=== PATIENT | female | born 1950 | race Caucasian/White ===

== ENCOUNTER 2017-08-16 12:03 | Emergency (ER) | payer OTHER ==
[~2017-08-16] VITALS: Ht 165.1 cm; Wt 69.4 kg
[~2017-08-16 12:03] MED LIST: AMLO5 PO; ASPI81CH; ENAHYD PO; ESTR.75 PO; LEVSOD75; LISI5; METO50ER; Nitrostat0.4 MG; OXYB5ER; PRAVASTATIN SOD10 MG; TOLT4 PO
[2017-08-16 12:45] LABS: BASOPHILS ABSOLUTE AUTO 0.04 K/mm3 (0.00-0.23); BASOPHILS PERCENT AUTO 0 % (0-2); EOSINOPHILS PERCENT AUTO 1 % (0-6); Hematocrit 43.5 % (33.0-51.0); Hemoglobin 14.2 g/dL (11.5-16.0); IMMATURE GRAN ABSOLUTE AUTO 0.05 K/mm3 (0.00-0.10); IMMATURE GRAN PERCENT AUTO 0 % (0-1); LYMPHOCYTES ABSOLUTE AUTO 0.53 K/mm3 (0.84-5.20); LYMPHOCYTES PERCENT AUTO 3 % (21-46); MONOCYTES PERCENT AUTO 6 % (4-13); Mean Corpuscular HGB Conc 32.6 g/dL (31.5-36.5); Mean Corpuscular Volume 89 fL (80-100); NEUTROPHILS ABSOLUTE AUTO 13.87 K/mm3 (1.96-9.15); NEUTROPHILS PERCENT AUTO 90 % (41-73); Platelet Count 285 K/mm3 (150-400); RDW Coefficient Variation 12.6 % (11.7-14.2); RDW Standard Deviation 41.5 fL (35.1-46.3); Red Blood Cell Count 4.89 M/mm3 (3.80-5.20); White Blood Cell Count 15.49 K/mm3 (4.00-11.30)
[2017-08-16 13:03] LABS: Alanine Aminotransfer (ALT/SGP 28 U/L (12-78); Albumin, Blood 3.4 g/dL (3.4-5.0); Albumin/Globulin Ratio 0.8 (0.8-1.8); Alk Phos 78 U/L (50-136); Anion Gap 8 mmol/L (6-16); Aspartate Aminotrans (AST/SGOT 25 U/L (12-37); Bilirubin, Total 0.4 mg/dL (0.1-1.0); Blood Urea Nitrogen 17 mg/dL (8-24); Bun/Creatinine Ratio 25.4 (12.0-20.0); CO2, Blood 23 mmol/L (21-32); Calcium, Blood 8.7 mg/dL (8.5-10.1); Chloride, Blood 108 mmol/L (98-108); Creatinine, Blood 0.67 mg/dL (0.40-1.00); Globulin, Blood 4.3 g/dL (2.2-4.0); Glomerular Filtration Rate >60 (60-); Glucose, Blood 106 mg/dL (70-99); Potassium, Blood 4.2 mmol/L (3.5-5.5); Sodium, Blood 139 mmol/L (136-145); Total Protein, Blood 7.7 g/dL (6.4-8.2)
[2017-08-16] MEDS ORDERED: PRAV20 PO (14:45)
[2017-08-16] MEDS ORDERED: ACID REDUCER 1150 MG PO (14:59)
[2017-08-16] MEDS ORDERED: AMLO5 (15:00)
[2017-08-16 15:22] LABS: Source, Urine Clean Catch
[2017-08-16 15:33] LABS: Bilirubin, Urine Neg (Neg); Blood, Urine 1+ (Neg); Glucose Qualitative, Urine Neg (Neg); Ketones, Urine Neg (Neg); Leukocyte Esterase, Urine 1+ (Neg); Nitrite, Urine Neg (Neg); Protein, Urine Neg (Neg); Specific Gravity, Urine 1.015 (1.003-1.022); Urobilinogen, Urine NORM (Normal)
[2017-08-16] MEDS ORDERED: Norco 5-325 Ta1 EACH PO (15:37)
[2017-08-16] MEDS ORDERED: Zofran Odt4 MG PO (15:37)
[2017-08-16 15:44] LABS: Appearance, Urine Clear (Clear); Color, Urine Pale Yellow (P-Yellow)
[2017-08-16 15:50] LABS: Bacteria Few /hpf; Squamous Epithelial Cells Few /hpf (Few)
[2017-08-16 16:23] LABS: Adenovirus F 40/41 Not Detected (NOT DETECT); Astrovirus Not Detected (NOT DETECT); Campylobacter Sp Not Detected (NOT DETECT); Cryptosporidium Not Detected (NOT DETECT); Cyclospora Cayetanensis Not Detected (NOT DETECT); E. Coli O157 Not Detected (NOT DETECT); Entamoeba Histolytica Not Detected (NOT DETECT); Enteroaggregative E. coli-EAEC Not Detected (NOT DETECT); Enteropathogenic E. coli-EPEC Not Detected (NOT DETECT); Enterotoxigenic E. coli-ETEC Not Detected (NOT DETECT); Giardia Lamblia Not Detected (NOT DETECT); Norovirus GI/GII Not Detected (NOT DETECT); Plesiomonas Shigelloides Not Detected (NOT DETECT); Rotavirus A Not Detected (NOT DETECT); Salmonella Sp Not Detected (NOT DETECT); Sapovirus Not Detected (NOT DETECT); Shiga Toxin-prod E. coli-STEC Not Detected (NOT DETECT); Shigella/Enteroin E. coli-EIEC Not Detected (NOT DETECT); Vibrio Cholerae Not Detected (NOT DETECT); Vibrio Sp Not Detected (NOT DETECT); Yersinia Enterocolitica Not Detected (NOT DETECT)
== END 2017-08-16 17:15 | disposition home or self-care (01) ==
LOC: ER 12:03
PROVIDERS: Emergency Medicine; Physician Assistant
DX: K52.9 Noninfective gastroenteritis and colitis, unspecified (principal); Z88.0 Allergy status to penicillin; Z88.8 Allergy status to other drugs, medicaments and biological substances; Z79.899 Other long term (current) drug therapy; Z79.82 Long term (current) use of aspirin; I10 Essential (primary) hypertension; K21.9 Gastro-esophageal reflux disease without esophagitis; E03.9 Hypothyroidism, unspecified; Z87.891 Personal history of nicotine dependence
CPT/HCPCS: 36415; 74177; 80053; 81001; 83690; 85025; 87077; 87086; 87186; 87507; 96361; 96374; 99284; J2405; J7030; Q9967

== ENCOUNTER → 2020-04-17 | Outpatient (CLI) | payer MEDICARE, OTHER ==
[~2020-04-17] MED LIST changes: +ACID REDUCER 1150 MG PO; +AMLO5; +Crestor20 MG PO; +DUTOPROL PO; +FAMO20 PO; +LEVOTHYROXINE PO; +Norco 5-325 Ta1 EACH PO; +PRAV20 PO; +Zofran Odt4 MG PO
== END ==
LOC: PLD 08:10 → LAB SHORT 08:10
DX: D48.5 Neoplasm of uncertain behavior of skin (principal)
CPT/HCPCS: 88305

== ENCOUNTER 2020-09-17 10:51 | Day surgery (SDC) | payer MEDICARE, OTHER ==
[~2020-09-17] VITALS: Ht 165.1 cm; Wt 71.5 kg
== END 2020-09-17 13:15 | disposition home or self-care (01) ==
LOC: ORSCSDS 10:51
PROVIDERS: Internal Medicine Gastroenterology
PROC: 0DB58ZX Excision of Esophagus, Via Natural or Artificial Opening Endoscopic, Diagnostic (ICD-10-PCS; principal; 2020-09-17 13:15)
PROC: 0DB68ZX Excision of Stomach, Via Natural or Artificial Opening Endoscopic, Diagnostic (ICD-10-PCS; principal; 2020-09-17 13:15)
PROC: 0D757ZZ Dilation of Esophagus, Via Natural or Artificial Opening (ICD-10-PCS; principal; 2020-09-17 13:15)
DX: R13.14 Dysphagia, pharyngoesophageal phase (principal); K21.9 Gastro-esophageal reflux disease without esophagitis; K22.2 Esophageal obstruction; K44.9 Diaphragmatic hernia without obstruction or gangrene; K22.8 Other specified diseases of esophagus; Z79.82 Long term (current) use of aspirin; Z87.891 Personal history of nicotine dependence; Z79.899 Other long term (current) drug therapy
CPT/HCPCS: 87081; 88305; 88312; 88342; J2704; J7120

== ENCOUNTER 2020-11-19 15:16 | Observation (INO) | payer MEDICARE, OTHER ==
[~2020-11-19] VITALS: Ht 165.1 cm; Wt 70.6 kg
[~2020-11-19 15:16] MED LIST changes: -AMLO5; -ASPI81CH; -Crestor20 MG PO; -DUTOPROL PO; -FAMO20 PO; -LEVOTHYROXINE PO; -OXYB5ER
[2020-11-19 16:21] LABS: Alanine Aminotransfer (ALT/SGP 45 U/L (12-78); Albumin, Blood 3.8 g/dL (3.4-5.0); Albumin/Globulin Ratio 0.9 (0.8-1.8); Alk Phos 109 U/L (50-136); Anion Gap 6 mmol/L (6-16); Aspartate Aminotrans (AST/SGOT 38 U/L (12-37); Bilirubin, Total 0.4 mg/dL (0.1-1.0); Blood Urea Nitrogen 13 mg/dL (8-24); Bun/Creatinine Ratio 18.3 (12.0-20.0); CO2, Blood 24 mmol/L (21-32); Calcium, Blood 9.4 mg/dL (8.5-10.1); Chloride, Blood 108 mmol/L (98-108); Creatinine, Blood 0.71 mg/dL (0.40-1.00); Globulin, Blood 4.4 g/dL (2.2-4.0); Glomerular Filtration Rate >60 (60-); Glucose, Blood 93 mg/dL (70-99); Potassium, Blood 4.4 mmol/L (3.5-5.5); Sodium, Blood 138 mmol/L (136-145); Total Protein, Blood 8.2 g/dL (6.4-8.2); Troponin I <0.015 ng/mL (0.000-0.040)
[2020-11-19 16:44] LABS: BASOPHILS ABSOLUTE AUTO 0.07 K/mm3 (0.00-0.23); BASOPHILS PERCENT AUTO 1 % (0-2); EOSINOPHILS ABSOLUTE AUTO 0.25 K/mm3 (0.00-0.68); EOSINOPHILS PERCENT AUTO 3 % (0-6); Hematocrit 41.7 % (33.0-51.0); Hemoglobin 14.1 g/dL (11.5-16.0); IMMATURE GRAN ABSOLUTE AUTO 0.04 K/mm3 (0.00-0.10); IMMATURE GRAN PERCENT AUTO 0 % (0-1); LYMPHOCYTES PERCENT AUTO 33 % (21-46); MONOCYTES ABSOLUTE AUTO 0.63 K/mm3 (0.16-1.47); MONOCYTES PERCENT AUTO 7 % (4-13); Mean Corpuscular HGB 29.4 pg (26.0-34.0); Mean Corpuscular HGB Conc 33.8 g/dL (31.5-36.5); Mean Corpuscular Volume 87 fL (80-100); NEUTROPHILS ABSOLUTE AUTO 5.33 K/mm3 (1.96-9.15); NEUTROPHILS PERCENT AUTO 57 % (41-73); RDW Coefficient Variation 12.9 % (11.7-14.2); RDW Standard Deviation 40.5 fL (35.1-46.3); White Blood Cell Count 9.42 K/mm3 (4.00-11.30)
[2020-11-19 18:29] LABS: Mean Platelet Volume 11.6 fL (9.1-12.4); Platelet Count 262 K/mm3 (150-400)
[2020-11-19] MEDS ORDERED: Crestor20 MG PO (20:16)
[2020-11-19] MEDS ORDERED: FAMO40 PO (20:16)
[2020-11-19] MEDS ORDERED: LISI5 PO (20:17)
[2020-11-19] MEDS ORDERED: METO50ER PO (20:17)
[2020-11-19] MEDS ORDERED: Amlodipine Bes2.5 MG PO (20:18)
[2020-11-19] MEDS ORDERED: OXYB5ER PO (20:18)
[2020-11-19] MEDS ORDERED: LEVOTHYROXINE PO (20:18)
[2020-11-19] MEDS ORDERED: Aspir 8181 MG PO (21:54)
--- NOTE | 2020-11-20 06:14 | NUR ---
SHIFT SUMMARY PATIENT ALERT AND ORIENTED. HAD NO COMPLAINTS OF PAIN OR SHORTNESS OF BREATH. REPORTED NO CHEST PAIN. NO ACUTE ISSUES NOTED OVERNIGHT. IV PATENT AND FLUSHED. BED IN LOWEST POSITION WITH WHEELS LOCKED. CALL LIGHT WITHIN REACH. REPORT GIVENT REZA GRIFFITHS.
--- NOTE | 2020-11-20 19:26 | NUR ---
DISCHARGE SUMMARY: LATE ENTRY PATIENT REPORTED SOME "IRRITATION" TO THE RIGHT CHEST AREA THIS MORNING. PATIENT REPORTED THAT THIS IS THE SAME PAIN THAT SHE HAS BEEN HAVING. DENIED NEED FOR INTERVENTION. PATIENT DENIED OTHER DISCOMFORT OR PAIN. PATIENT INDEPENDENT IN THE ROOM WITHOUT SHORTNESS OF BREATH, DIZZINESS OR INCREASED CHEST PAIN. PATIENT TOLERATED STRESS TEST WELL. PATIENT DENIED NAUSEA OR INCREASED CHEST PAIN. PATIENT TO DISCHARGE PER MD ORDERS. UNABLE TO MAKE FOLLOW-UP APPOINTMENTS DUE TO EVENING DISCHARGE TIME. PATIENT REPORTED THAT SHE FEELS COMFORTABLE MAKING THEM. PATIENT DISCHARGED IN WHEELCHAIR WITH RN. PATIENT STABLE AT TIME OF DISCHARGE.
== END 2020-11-20 18:26 | disposition home or self-care (01) ==
LOC: ER 15:16 → ERHOLD 15:17 → MEDS 22:14
PROVIDERS: Physician Assistant; ADMIT Internal Medicine
DX: R07.89 Other chest pain (principal); I10 Essential (primary) hypertension; K21.9 Gastro-esophageal reflux disease without esophagitis; E03.9 Hypothyroidism, unspecified; I25.10 Atherosclerotic heart disease of native coronary artery without angina pectoris; E78.5 Hyperlipidemia, unspecified; I45.10 Unspecified right bundle-branch block; Z79.82 Long term (current) use of aspirin; Z88.0 Allergy status to penicillin; Z88.1 Allergy status to other antibiotic agents; Z87.891 Personal history of nicotine dependence; Z87.448 Personal history of other diseases of urinary system
CPT/HCPCS: 36415; 71046; 78452; 80053; 83690; 83880; 84484; 85025; 85379; 93005; 93010; 93017; 96372; 99285-25; A9270; A9500; G0378; J0706; J1650; J2785

== ENCOUNTER 2021-06-19 08:02 | Day surgery (SDC) | payer MEDICARE, OTHER ==
[~2021-06-19] VITALS: Ht 165.1 cm; Wt 69.0 kg
[~2021-06-19 08:02] MED LIST changes: +Amlodipine Bes2.5 MG PO; +Aspir 8181 MG PO; +Crestor20 MG PO; +DUTOPROL PO; +FAMO40 PO; +LEVOTHYROXINE PO; +LISI5 PO; +METO50ER PO; +NITR.4SL SL; +OXYB5ER PO
== END 2021-06-19 10:57 | disposition home or self-care (01) ==
LOC: ORSCSDS 08:02
PROVIDERS: Internal Medicine Gastroenterology
PROC: 0DB58ZX Excision of Esophagus, Via Natural or Artificial Opening Endoscopic, Diagnostic (ICD-10-PCS; principal; 2021-06-19 09:30)
PROC: 0DBK8ZX Excision of Ascending Colon, Via Natural or Artificial Opening Endoscopic, Diagnostic (ICD-10-PCS; principal; 2021-06-19 09:30)
PROC: 0DBH8ZX Excision of Cecum, Via Natural or Artificial Opening Endoscopic, Diagnostic (ICD-10-PCS; principal; 2021-06-19 09:30)
DX: K21.9 Gastro-esophageal reflux disease without esophagitis (principal); R13.14 Dysphagia, pharyngoesophageal phase; Z12.11 Encounter for screening for malignant neoplasm of colon; Z86.010 Personal history of colon polyps; D12.0 Benign neoplasm of cecum; D12.2 Benign neoplasm of ascending colon; K22.2 Esophageal obstruction; K57.30 Diverticulosis of large intestine without perforation or abscess without bleeding; K44.9 Diaphragmatic hernia without obstruction or gangrene; Z87.891 Personal history of nicotine dependence; Z79.899 Other long term (current) drug therapy; Z79.82 Long term (current) use of aspirin; I10 Essential (primary) hypertension
CPT/HCPCS: 88305; J2704; J7120

== ENCOUNTER 2022-10-10 12:32 | Day surgery (SDC) | payer MEDICARE, OTHER ==
[~2022-10-10] VITALS: Ht 165.1 cm; Wt 71.8 kg
[2022-10-10 15:15] VITALS: BP 119/67
== END 2022-10-10 15:17 | disposition home or self-care (01) ==
LOC: ORSCSDS 12:32
PROVIDERS: Internal Medicine Gastroenterology
PROC: 0DB48ZX Excision of Esophagogastric Junction, Via Natural or Artificial Opening Endoscopic, Diagnostic (ICD-10-PCS; principal; 2022-10-10 14:00)
PROC: 0D758ZZ Dilation of Esophagus, Via Natural or Artificial Opening Endoscopic (ICD-10-PCS; principal; 2022-10-10 14:00)
PROC: 0DB68ZX Excision of Stomach, Via Natural or Artificial Opening Endoscopic, Diagnostic (ICD-10-PCS; principal; 2022-10-10 14:00)
DX: R13.14 Dysphagia, pharyngoesophageal phase (principal); K21.9 Gastro-esophageal reflux disease without esophagitis; K22.2 Esophageal obstruction; K29.70 Gastritis, unspecified, without bleeding; Z79.82 Long term (current) use of aspirin; Z79.899 Other long term (current) drug therapy
CPT/HCPCS: 88305; 88312; 88342; J0461; J2001; J2405; J2704; J7120; Q9968

== ENCOUNTER 2023-04-21 06:51 | Day surgery (SDC) | payer MEDICARE, OTHER ==
[2023-04-21] VITALS (16 sets, daily range): BP systolic 91–177; BP diastolic 38–82
[~2023-04-21] VITALS: Ht 165.1 cm; Wt 72.5 kg
[~2023-04-21 06:51] MED LIST changes: +ESCI10 PO; +TOPI25 PO
--- NOTE | 2023-04-21 07:59 | NUR ---
Ambulatory in Day Surgery History, Chart, Medications and Allergies reviewed before start of procedure. Pre-Op teaching done. Pt verbalizes understanding.
--- NOTE | 2023-04-21 09:57 | NUR ---
04/21/23 0957 Kelsi Craft SPINAL NERVE BLOCK COMPLETED BY DR. HUERTA UPON ENTRY TO OR. PT WAS ABLE TO TOLERATE SPINAL, HOWEVER WAS UNABLE TO TOLERATE LAYING FLAT AFTER PROCEDURE START. AN LMA WAS PLACED BY DR. HUERTA AFTER INCISION WAS MADE. PT TOLERATED WELL.
--- NOTE | 2023-04-21 12:08 | NUR ---
PT ARRIVED TO THE ROOM FROM PACU AT 1135. PT DENIES PAIN. SENSATION IS AT L2. SPINAL SITE WNL. PT ALERT AND ORIENTED. SHE IS ABLE TO MOVE BUE EQUALLY. FAMILY AT BEDSIDE FOR SUPPORT. PT PROVIDED WITH AND EDUCATED TO USE CALL LIGHT, SHE VERBALIZED UNDERSTANDING.
--- NOTE | 2023-04-21 17:22 | NUR ---
SHIFT SUMMARY PT IS POD#0 FROM L TKA WITH DR. GILLIAM. PAIN MANAGED WITH PO PAIN MEDICATION. PT HAS BEEN OOB AND WORKED WITH THERAPY TODAY, SHE IS A 1 PERSON ASSIST WITH GAIT BELT AND WALKER. PT IS TOLERATING PO. SHE HAS VOIDED.
[2023-04-22 00:14] VITALS: BP 122/60
[2023-04-22 02:45] VITALS: BP 116/53
[2023-04-22 06:47] LABS: BASOPHILS ABSOLUTE AUTO 0.01 K/mm3 (0.00-0.23); BASOPHILS PERCENT AUTO 0 % (0-2); EOSINOPHILS PERCENT AUTO 0 % (0-6); Hemoglobin 10.7 g/dL (11.5-16.0); IMMATURE GRAN ABSOLUTE AUTO 0.05 K/mm3 (0.00-0.10); IMMATURE GRAN PERCENT AUTO 0 % (0-1); LYMPHOCYTES ABSOLUTE AUTO 0.91 K/mm3 (0.84-5.20); LYMPHOCYTES PERCENT AUTO 7 % (21-46); MONOCYTES ABSOLUTE AUTO 0.93 K/mm3 (0.16-1.47); MONOCYTES PERCENT AUTO 7 % (4-13); Mean Corpuscular HGB 30.3 pg (26.0-34.0); Mean Corpuscular HGB Conc 32.4 g/dL (31.5-36.5); Mean Corpuscular Volume 94 fL (80-100); Mean Platelet Volume 10.6 fL (9.1-12.4); NEUTROPHILS ABSOLUTE AUTO 11.92 K/mm3 (1.96-9.15); NEUTROPHILS PERCENT AUTO 86 % (41-73); Platelet Count 238 K/mm3 (150-400); RDW Standard Deviation 44.4 fL (35.1-46.3); Red Blood Cell Count 3.53 M/mm3 (3.80-5.20); White Blood Cell Count 13.82 K/mm3 (4.00-11.30)
[2023-04-22 07:15] LABS: Bun/Creatinine Ratio 21.4 (12.0-20.0); Creatinine, Blood 0.65 mg/dL (0.40-1.00); Potassium, Blood 4.5 mmol/L (3.5-5.5)
[2023-04-22 07:26] VITALS: BP 106/58
--- NOTE | 2023-04-22 07:39 | NUR ---
POD 1 S/P L TKA. PT VSS T/O NIGHT. DRESSING CDI. PEDAL PULSES AND CAP REFILL WNL, PT REP SENSATION AT BASELINE. PAIN MGD W/10MG OXYCODONE W/REP RELIEF. PT NILDA PO, DENIED N/V, IS VOIDING URINE W/O DIFFICULTY. PT AMB W/FWW+SBA, NILDA WELL. PLAN TO MOBILIZE W/PT AND DC HOME WHEN CLEARED.
[2023-04-22] MEDS ORDERED: Percocet 5-3251 EACH PO (09:47)
--- NOTE | 2023-04-22 11:31 | NUR ---
DISCHARGE: PT CLEARED WITH THERAPY. DC PACKET PRINTED AND PT EDUCATED. GIVEN SCRIPT AND EXTRA AQUACEL DRESSINGS. IV DC'D BY RIZWANA GALEANO. PT LEFT UNIT VIA WHEELCHAIR WITH RIZWANA GALEANO AND FAMILY AT ABOUT 1030
== END 2023-04-22 10:30 | disposition home or self-care (01) ==
LOC: ORSCMMR 06:51 → ORD 08:15 → SURS 11:22 → ORSCMMR 04-22 10:30
PROVIDERS: Orthopaedic Surgery
PROC: 0SRD0JA Replacement of Left Knee Joint with Synthetic Substitute, Uncemented, Open Approach (ICD-10-PCS; principal; 2023-04-21 08:15)
DX: M17.12 Unilateral primary osteoarthritis, left knee (principal); I10 Essential (primary) hypertension; E78.5 Hyperlipidemia, unspecified; E03.9 Hypothyroidism, unspecified; I25.10 Atherosclerotic heart disease of native coronary artery without angina pectoris; K21.9 Gastro-esophageal reflux disease without esophagitis; Z79.899 Other long term (current) drug therapy
CPT/HCPCS: 36415; 73560-LT; 80048; 85025; 97110; 97116; 97162; 97530; A9270; C1713; C1776; J0171; J0690; J0735; J1100; J1885; J2250; J2405; J2704; J2795; J3010; J7120

== ENCOUNTER 2023-04-23 23:39 | Emergency (ER) | payer MEDICARE, OTHER ==
[~2023-04-23] VITALS: Ht 165.1 cm; Wt 71.7 kg
[~2023-04-23 23:39] MED LIST changes: +Percocet 5-3251 EACH PO
[2023-04-24 01:41] LABS: Albumin, Blood 3.2 g/dL (3.4-5.0); Bilirubin, Total 0.6 mg/dL (0.1-1.0); Bun/Creatinine Ratio 27.1 (12.0-20.0); Calcium, Blood 8.2 mg/dL (8.5-10.1); Creatinine, Blood 0.66 mg/dL (0.40-1.00); Globulin, Blood 3.3 g/dL (2.2-4.0); Potassium, Blood 4.7 mmol/L (3.5-5.5); Total Protein, Blood 6.5 g/dL (6.4-8.2)
[2023-04-24 06:07] LABS: BASOPHILS ABSOLUTE AUTO 0.05 K/mm3 (0.00-0.23); BASOPHILS PERCENT AUTO 0 % (0-2); EOSINOPHILS ABSOLUTE AUTO 0.13 K/mm3 (0.00-0.68); EOSINOPHILS PERCENT AUTO 1 % (0-6); Hematocrit 33.5 % (33.0-51.0); Hemoglobin 10.9 g/dL (11.5-16.0); IMMATURE GRAN ABSOLUTE AUTO 0.08 K/mm3 (0.00-0.10); IMMATURE GRAN PERCENT AUTO 1 % (0-1); LYMPHOCYTES ABSOLUTE AUTO 2.54 K/mm3 (0.84-5.20); LYMPHOCYTES PERCENT AUTO 16 % (21-46); MONOCYTES ABSOLUTE AUTO 1.62 K/mm3 (0.16-1.47); MONOCYTES PERCENT AUTO 10 % (4-13); Mean Corpuscular HGB 30.3 pg (26.0-34.0); Mean Corpuscular HGB Conc 32.5 g/dL (31.5-36.5); Mean Corpuscular Volume 93 fL (80-100); Mean Platelet Volume 10.4 fL (9.1-12.4); NEUTROPHILS ABSOLUTE AUTO 11.57 K/mm3 (1.96-9.15); NEUTROPHILS PERCENT AUTO 72 % (41-73); Platelet Count 238 K/mm3 (150-400); RDW Coefficient Variation 12.9 % (11.7-14.2); RDW Standard Deviation 44.7 fL (35.1-46.3); White Blood Cell Count 15.99 K/mm3 (4.00-11.30)
[2023-04-24 08:20] LABS: Appearance, Urine Clear (Clear); Bilirubin, Urine Neg (Neg); Blood, Urine 1+ (Neg); Glucose Qualitative, Urine Neg (Neg); Ketones, Urine Neg (Neg); Leukocyte Esterase, Urine Neg (Neg); Nitrite, Urine Neg (Neg); Protein, Urine Neg (Neg); Urobilinogen, Urine NORM (Normal)
[2023-04-24 08:23] LABS: Color, Urine Pale Yellow (P-Yellow)
[2023-04-24 08:46] LABS: Bacteria Rare /hpf; Red Blood Cells, Urine 0-2 /hpf (0-2); Squamous Epithelial Cells Rare /hpf (Few); Transitional Epithelial Cells Rare /hpf (0-Rare); White Blood Cells, Urine 0-2 /hpf (0-5)
[2023-04-24 10:04] LABS: Influenza A, PCR NEGATIVE (NEGATIVE); Influenza B, PCR NEGATIVE (NEGATIVE); Resp Syncytial Virus, PCR NEGATIVE (NEGATIVE); SARS-Cov-2 (COVID-19) PCR, MMC NEGATIVE (NEGATIVE)
[2023-04-24] MEDS ORDERED: HYDR1TAB94 PO (10:44)
[2023-04-24] MEDS ORDERED: ONDA4ODT MM (11:22)
[2023-04-24 12:15] VITALS: BP 136/84
== END 2023-04-24 12:30 | disposition home or self-care (01) ==
LOC: ER 23:39
PROVIDERS: Emergency Medicine; Student in an Organized Health Care Education/Training Program
DX: R41.0 Disorientation, unspecified (principal); G89.18 Other acute postprocedural pain; D72.829 Elevated white blood cell count, unspecified; R11.2 Nausea with vomiting, unspecified; R63.0 Anorexia; T39.395A Adverse effect of other nonsteroidal anti-inflammatory drugs [NSAID], initial encounter; Z96.652 Presence of left artificial knee joint; Z87.891 Personal history of nicotine dependence; I10 Essential (primary) hypertension; E03.9 Hypothyroidism, unspecified; K21.9 Gastro-esophageal reflux disease without esophagitis; I25.10 Atherosclerotic heart disease of native coronary artery without angina pectoris; Z79.82 Long term (current) use of aspirin; Z79.899 Other long term (current) drug therapy; Z88.0 Allergy status to penicillin; Z88.1 Allergy status to other antibiotic agents
CPT/HCPCS: 0241U; 36415; 71046; 73562-LT; 80053; 81001; 83605; 85025; 86140; 87040; 96365; 96375; 99285-25; A9270; J0696; J1885; J2405

== ENCOUNTER 2024-11-19 15:02 | Emergency (ER) | payer MEDICARE, OTHER ==
[~2024-11-19] VITALS: Ht 165.1 cm; Wt 70.3 kg
[~2024-11-19 15:02] MED LIST changes: +HYDR1TAB94 PO; +ONDA4ODT MM
[2024-11-19] MEDS ORDERED: OMEP20ER PO (17:20)
[2024-11-19] MEDS ORDERED: Ondansetron 4 MG SoluTab SL ONE (17:25)
[2024-11-19] MEDS ORDERED: Ketorolac Tromethamine 15mg Vial IM ONE (17:25)
[2024-11-19] MEDS ORDERED: NS 1,000 ML IV SCH (17:50)
[2024-11-19] MEDS ORDERED: ONDA4ODT MM (19:10)
[2024-11-19 19:24] VITALS: BP 118/78
== END 2024-11-19 19:24 | disposition home or self-care (01) ==
LOC: ER 15:02
DX: S06.0X0A Concussion without loss of consciousness, initial encounter (principal); K52.9 Noninfective gastroenteritis and colitis, unspecified; K21.9 Gastro-esophageal reflux disease without esophagitis; I10 Essential (primary) hypertension; W22.8XXA Striking against or struck by other objects, initial encounter; Z87.891 Personal history of nicotine dependence; Z79.82 Long term (current) use of aspirin; Z79.899 Other long term (current) drug therapy; Z88.0 Allergy status to penicillin; Z88.1 Allergy status to other antibiotic agents; Z88.5 Allergy status to narcotic agent; Z88.8 Allergy status to other drugs, medicaments and biological substances
CPT/HCPCS: 70450; 72125; 96372; 99283-25; A9270; J1885; J7030